=== PATIENT | female | born 1960 | race African-American/Black ===

== ENCOUNTER 2017-07-25 04:58 | Emergency (ER) | payer OTHER ==
[2017-07-25 05:36] VITALS: BP 149/92; PULSE 100; TEMP 98.3; BMI 25.0
[2017-07-25] MEDS ORDERED: KETOROLAC TROMETHAMINE 30 MG/1 ML VIAL IM ONE (05:39)
--- NOTE | 2017-07-25 05:40 | PDOC ---
History of Present Illness - General Chief Complaint: Pain Stated Complaint: PAIN RIGHT LEG Time Seen by Provider: 07/25/17 05:18 History Source: Patient - History of Present Illness Initial Comments: 07/25/17 06:05 57-year-old female with right knee pain and swelling on and off for the last 7 months reported to the ER for 1 day of worsening knee pain. Patient reports that she ran out of her medication that was given from the ER. Patient has not followed up with her primary care or orthopedic for this condition.patient reports tactile temps. Denies headache, nausea vomiting diarrhea, abdominal pain , injury, trauma to the knee. patient also reports that her previous ER visit she was diagnosed with hypertension and has ran out of medication. Past History - Past Medical History Allergies/Adverse Reactions: Allergies Allergy/AdvReac Type Severity Reaction Status Date / Time No Known Allergies Allergy Verified 07/25/17 05:37 Home Medications: Ambulatory Orders Ibuprofen [Motrin -] 600 mg PO TID #21 tablet 05/12/17 Methylprednisolone [Medrol Dose Benjamín] 4 mg PO ASDIR #21 tablet 05/12/17 Tramadol HCl 50 mg PO Q6H PRN #12 tablet MDD 4 tabs 05/12/17 Naproxen [Naprosyn -] 375 mg PO BID #20 tablet 07/25/17 COPD: No HTN: Yes - Suicide/Smoking/Psychosocial Hx Smoking History: Never smoked Hx Alcohol Use: No Drug/Substance Use Hx: No Review of Systems - Review of Systems Able to Perform ROS?: Yes Is the patient limited American proficient: No Constitutional: Yes: Fever Musculoskeletal: Yes: Joint Swelling (right knee), Other *Physical Exam - Vital Signs 07/25/17 06:08 Last Vital Signs Temp Pulse Resp BP Pulse Ox 98.3 F 100 H 20 149/92 98 07/25/17 05:22 07/25/17 05:22 07/25/17 05:22 07/25/17 05:22 07/25/17 05:22 - Physical Exam General Appearance: Yes: Moderate Distress Respiratory/Chest: positive: Lungs Clear, Normal Breath Sounds Cardiovascular: positive: Regular Rhythm, Regular Rate Musculoskeletal: positive: Decreased Range of Motion (to right knee, + swelling warm to touch. no erythema noted) Integumentary: positive: Normal Color, Dry, Warm Neurologic: positive: Fully Oriented, Alert, Normal Mood/Affect (all) Medical Decision Making - Medical Decision Making 07/25/17 06:09 A: right knee pain P: xray toradol *DC/Admit/Observation/Transfer Diagnosis at time of Disposition: Knee pain, right anterior - Discharge Dispostion Disposition: HOME Condition at time of disposition: Fair - Prescriptions Prescriptions: Naproxen [Naprosyn -] 375 mg PO BID #20 tablet - Referrals Referrals: Brandon Whitman [Primary Care Provider] - 24 hours Jerardo Del Cid MD [Staff Physician] - 24 hours - Patient Instructions Printed Discharge Instructions: DI for Knee Effusion Additional Instructions: please follow up with your doctor as soon as possible applt ice/ heat to the area. take naprosyn as prescribed follo w up with your doctor and an orthopedic doctor as soon as possible. - Post Discharge Activity Forms/Work/School Notes: Back to Work
[2017-07-25] MEDS ORDERED: KETOROLAC TROMETHAMINE 30 MG/1 ML VIAL ONE (06:37)
== END 2017-07-25 07:21 | disposition home or self-care (01) ==
LOC: JER 04:58
PROC: 3E0233Z Introduction of Anti-inflammatory into Muscle, Percutaneous Approach (ICD-10-PCS; principal; 2017-07-25)
DX: M25.561 Pain in right knee (principal); I10 Essential (primary) hypertension; Z76.0 Encounter for issue of repeat prescription
CPT/HCPCS: 73562-TC-RT-FY; 96372; 99281-25

== ENCOUNTER 2017-11-18 14:21 | Inpatient (IN) | payer OTHER ==
--- NOTE | 2017-11-18 14:35 | PDOC ---
History of Present Illness - General Chief Complaint: Palpitations Stated Complaint: CHEST PAIN, NAUSEA Time Seen by Provider: 11/18/17 14:34 - History of Present Illness Initial Comments: 11/18/17 14:40 Ms. Richard is a 57 yo female w/ pmh knee pain who presents for evaluation of episode of sweating with palpitations earlier today. Patient reports she was doing laundry when she suddenly became very sweaty and experienced palpitations and left sided chest pain. Symptoms persisted from 6am until 1pm. Patient reports they have now dissipated however niece who is with her convinced her to come for further evaluation. The patient denies shortness of breath, headache and dizziness. Denies fever, chills, nausea, vomit, diarrhea and constipation. Denies dysuria, frequency, urgency and hematuria. Allergies: NKDA Past History - Past Medical History Allergies/Adverse Reactions: Allergies Allergy/AdvReac Type Severity Reaction Status Date / Time No Known Allergies Allergy Verified 11/18/17 14:32 Home Medications: Ambulatory Orders NK [No Known Home Medication] 11/18/17 COPD: No HTN: Yes - Suicide/Smoking/Psychosocial Hx Smoking History: Never smoked Have you smoked in the past 12 months: No Hx Alcohol Use: No Drug/Substance Use Hx: No Review of Systems - Review of Systems Comments:: 11/18/17 14:41 GENERAL/CONSTITUTIONAL: No fever or chills. No weakness. HEAD, EYES, EARS, NOSE AND THROAT: No change in vision. No ear pain or discharge. No sore throat. CARDIOVASCULAR: +Chest pain w/ diaphoresis and palpitations as described. RESPIRATORY: No cough, wheezing, or hemoptysis. GASTROINTESTINAL: No nausea, vomiting, diarrhea or constipation. GENITOURINARY: No dysuria, frequency, or change in urination. MUSCULOSKELETAL: No joint or muscle swelling or pain. No neck or back pain. SKIN: No rash NEUROLOGIC: No headache, vertigo, loss of consciousness, or change in strength/ sensation. ENDOCRINE: No increased thirst. No abnormal weight change HEMATOLOGIC/LYMPHATIC: No anemia, easy bleeding, or history of blood clots. ALLERGIC/IMMUNOLOGIC: No hives or skin allergy. *Physical Exam - Vital Signs Last Vital Signs Temp Pulse Resp BP Pulse Ox 99.8 F H 92 H 18 155/92 99 11/18/17 14:28 11/18/17 14:28 11/18/17 14:28 11/18/17 14:28 11/18/17 14:28 - Physical Exam Comments: 11/18/17 14:41 GENERAL: Awake, alert, and fully oriented, in no acute distress HEAD: No signs of trauma, normocephalic, atraumatic EYES: PERRLA, EOMI, sclera anicteric, conjunctiva clear ENT: Auricles normal inspection, hearing grossly normal, nares patent, oropharynx clear without exudates. Moist mucosa NECK: Normal ROM, supple, no lymphadenopathy, JVD, or masses LUNGS: No distress, speaks full sentences, clear to auscultation bilaterally HEART: Regular rate and rhythm, normal S1 and S2, no murmurs, rubs or gallops, peripheral pulses normal and equal bilaterally. ABDOMEN: Soft, nontender, normoactive bowel sounds. No guarding, no rebound. No masses EXTREMITIES: Normal inspection, Normal range of motion, no edema. No clubbing or cyanosis. NEUROLOGICAL: Cranial nerves II through XII grossly intact. Normal speech, normal gait, no focal sensorimotor deficits SKIN: Warm, Dry, normal turgor, no rashes or lesions noted. Heart Score/ECG Review - History History: Highly suspicious - Electrocardiogram EKG: Non specific repolarization disturbance - Age Age: 45-65 - Risk Factors Based on the list above the patient has:: No risk factors known - Troponin Troponin: </= normal limit - Score Heart Score - Total: 4 ED Treatment Course - LABORATORY CBC & Chemistry Diagram: 11/18/17 15:30 11/18/17 15:30 Medical Decision Making - Medical Decision Making 11/18/17 16:17 Ms. Richard is a 57 yo female w/ pmh as described who presents for evaluation of episode concerning for cardiac event. Workup begun with EKG, labs, CXR. Labs grossly wnl as below. EKG significant for nonspecific t-wave abnormalities in V4 -V6 w/ incomplete LBBB. HEART score 4. Will admit patient for further cardiac workup. Laboratory Results - last 24 hr 11/18/17 11/18/17 11/18/17 15:30 15:30 15:45 WBC 8.0 RBC 4.11 Hgb 11.1 Hct 33.8 MCV 82.1 MCH 26.9 MCHC 32.8 RDW 17.7 H Plt Count 416 MPV 8.6 Absolute Neuts (auto) 5.0 Neutrophils % 61.8 Lymphocytes % 27.4 Monocytes % 9.0 Eosinophils % 1.0 Basophils % 0.8 Nucleated RBC % 0 Sodium 138 Potassium 4.2 Chloride 104 Carbon Dioxide 26 Anion Gap 8 BUN 13 Creatinine 0.7 Creat Clearance w eGFR > 60 Random Glucose 109 H Calcium 9.0 Total Bilirubin 0.3 AST 19 ALT 23 Alkaline Phosphatase 85 Creatine Kinase 136 Troponin I < 0.02 Total Protein 8.7 H Albumin 3.6 Urine Color Straw Urine Appearance Clear Urine pH 6.0 Ur Specific Kirksey 1.006 Urine Protein Negative Urine Glucose (UA) Negative Urine Ketones Negative Urine Blood 1+ H Urine Nitrite Negative Urine Bilirubin Negative Urine Urobilinogen Negative Ur Leukocyte Esterase Negative *DC/Admit/Observation/Transfer Diagnosis at time of Disposition: Palpitations Chest pain Qualifiers: Chest pain type: unspecified Qualified Code(s): R07.9 - Chest pain, unspecified - Discharge Dispostion Decision to Admit order: Yes - Referrals Referrals: Antonio Whitman MD [Primary Care Provider] - - Patient Instructions - Post Discharge Activity
[2017-11-18] MEDS ORDERED: ASPIRIN 81 MG CHEWABLE TABLETS PO ONE (15:20)
[2017-11-18] MEDS ORDERED: ASPIRIN 81 MG CHEWABLE TABLETS ONE (15:31)
--- NOTE | 2017-11-18 15:34 | PDOC ---
Attending Attestation - Resident Resident Name: Yousif Michaels - ED Attending Attestation I have performed the following: I have examined & evaluated the patient, The case was reviewed & discussed with the resident, I agree w/resident's findings & plan, Exceptions are as noted - HPI HPI: 11/18/17 15:31 57 year old female with no past medical history presents with chest pain and palpitations. The patient woke up in her usual state of health doing laundry at 6 am. Stated that she developed chest discomfort, diaphoresis, palpitations. No associated SOB. Symptoms lasted until 1 pm, until symptoms resolved. Has had a prior cardiac workup in 2015, but does not remember results. Does not smoke cigarettes and no family history of cardiac diesase. No recent illnesses, fevers, chills, cough, vomiting, diarrhea. - Physicial Exam PE: 11/18/17 15:34 GENERAL: Awake, alert, and fully oriented, in no acute distress HEAD: No signs of trauma EYES: EOMI, sclera anicteric, conjunctiva clear ENT: Auricles normal inspection, hearing grossly normal, nares patent, Moist mucosa NECK: Normal ROM, supple LUNGS: Breath sounds equal, clear to auscultation bilaterally. No wheezes, and no crackles HEART: Regular rate and rhythm, normal S1 and S2, no murmurs, rubs or gallops EXTREMITIES: Normal range of motion, no edema. No clubbing or cyanosis. No cords, erythema, or tenderness NEUROLOGICAL: Cranial nerves II through XII grossly intact. Normal speech, normal gait SKIN: Warm, Dry, normal turgor, no rashes or lesions noted. - Medical Decision Making 11/18/17 15:34 Vital Signs Temp Pulse Resp BP Pulse Ox 99.8 F H 92 H 18 155/92 99 11/18/17 14:28 11/18/17 14:28 11/18/17 14:28 11/18/17 14:28 11/18/17 14:28 Findings concerning for ACS/MT. Labs including troponin, chest xray. Give aspirin. If trop negative, heart score is 4. Admit. Temp noted to be 99.8 degrees. Will trend temperature. Heart Score/ECG Review - History History: Highly suspicious - Electrocardiogram EKG: Non specific repolarization disturbance - Age Age: 45-65 - Risk Factors Based on the list above the patient has:: No risk factors known - Troponin Troponin: </= normal limit - Score Heart Score - Total: 4 #1 ECG reviewed & interpreted by me at: 14:40 11/18/17 15:32 NSR 89, TWI III, avF, V4-V6, no std/justina, RSR' V2, QTC 420 msec, +LVH
[2017-11-18 15:47] LABS: BASO % 0.8 % (0-2.0); HEMATOCRIT 33.8 % (32.4-45.2); HEMOGLOBIN 11.1 GM/dL (10.7-15.3); LYMPH % 27.4 % (8-40); MCH 26.9 pg (25.7-33.7); MCHC 32.8 g/dl (32.0-36.0); MEAN CELL VOLUME 82.1 fl (80-96); MEAN PLT VOLUME 8.6 fl (7.5-11.1); NEUT % 61.8 % (42.8-82.8); PLATELET COUNT 416 K/MM3 (134-434); RBC 4.11 M/mm3 (3.60-5.2); RDW 17.7 % (11.6-15.6)
[2017-11-18 16:00] LABS: ALBUMIN 3.6 g/dl (3.4-5.0); ANION GAP 8 MMOL/L (8-16); BILIRUBIN,TOTAL 0.3 mg/dL (0.2-1.0); BLOOD UREA NITROGEN 13 mg/dL (7-18); CHLORIDE 104 mmol/L (98-107); CO2 26 mmol/L (21-32); CREATININE 0.7 mg/dL (0.55-1.3); GLUCOSE,RANDOM 109 mg/dL (74-106); POTASSIUM 4.2 mmol/L (3.5-5.1); SGOT/AST 19 U/L (15-37); SGPT/ALT 23 U/L (13-61); SODIUM 138 mmol/L (136-145); TOT PROT 8.7 g/dl (6.4-8.2)
[2017-11-18 16:03] LABS: ALK PHOS 85 U/L (45-117)
[2017-11-18 16:10] LABS: URINE APPEARANCE CLEAR; URINE BILIRUBIN NEGATIVE (<2.0 mg/dL); URINE COLOR STRAW; URINE GLUCOSE (UA) NEGATIVE (NEGATIVE); URINE KETONE NEGATIVE (NEGATIVE); URINE LEUK ESTERASE NEGATIVE (NEGATIVE); URINE NITRITE NEGATIVE (NEGATIVE); URINE PROTEIN NEGATIVE (NEGATIVE); URINE UROBILINOGEN NEGATIVE mg/dL (0.2-1.0)
[2017-11-18 16:25] LABS: URINE MUCUS RARE
[2017-11-18 18:47] VITALS: BMI 27.9
[2017-11-19 07:39] LABS: BASO % 0.9 % (0-2.0); EOS % 1.4 % (0-4.5); HEMATOCRIT 32.9 % (32.4-45.2); HEMOGLOBIN 10.9 GM/dL (10.7-15.3); LYMPH % 28.2 % (8-40); MCH 27.1 pg (25.7-33.7); MCHC 33.2 g/dl (32.0-36.0); MEAN CELL VOLUME 81.6 fl (80-96); MEAN PLT VOLUME 8.9 fl (7.5-11.1); MONO % 8.2 % (3.8-10.2); NEUT % 61.3 % (42.8-82.8); PLATELET COUNT 379 K/MM3 (134-434); RBC 4.03 M/mm3 (3.60-5.2); RDW 17.4 % (11.6-15.6); WHITE BLOOD COUNT 7.1 K/mm3 (4.0-10.0)
[2017-11-19 08:30] LABS: ALBUMIN 3.5 g/dl (3.4-5.0); BLOOD UREA NITROGEN 12 mg/dL (7-18); CALCIUM 9.2 mg/dL (8.5-10.1); GLUCOSE,RANDOM 94 mg/dL (74-106)
--- NOTE | 2017-11-19 08:46 | CON.CARD ---
Consult Consult Specialty:: Cardiology for dr. Trevizo Reason for Consultation:: palpitations - History of Present Illness History of Present Illness: 57 year old female with no past medical history presents with chest pain and palpitations. The patient woke up in her usual state of health doing laundry at 6 am. Stated that she developed chest discomfort, diaphoresis, palpitations. No associated SOB. Symptoms lasted until 1 pm, until symptoms resolved. Has had a prior cardiac workup in 2015, but does not remember results. Does not smoke cigarettes and no family history of cardiac diesase. No recent illnesses, fevers, chills, cough, vomiting, diarrhea. - History Source History Provided By: Patient, Medical Record - Past Medical History Cardio/Vascular: No: AFIB, Aneurysm, Aortic Insufficiency, Aortic Stenosis, CAD , CHF, Deep Vein Thrombosis, HTN, Hyperlipdemia, [place], Mitral Insufficiency, Mitral Stenosis, Murmur, Pulmonary Hypertension, Other Pulmonary: No: Asthma, Bronchitis, Cancer, COPD, O2 Dependent, Pneumonia, Previously Intubated, Pulmonary Embolus, Pulmonary Fibrosis, Sleep Apnea, Other Gastrointestinal: No: Ascites, Cancer, Constipation, Crohn's Disease, Diverticulitis, Diverticulosis, Esophageal Varices, Gastritis, GERD, GI Bleed, Hemorrhoids, Hiatal Hernia, Inflamatory Bowel Disease, Irritable Bowel Disease, Pancreatitis, Peptic Ulcer Disease, Ulcerative Colitis, Other ...: No - Alcohol/Substance Use Hx Alcohol Use: No - Smoking History Smoking history: Never smoked Have you smoked in the past 12 months: No Home Medications - Allergies Allergies/Adverse Reactions: Allergies Allergy/AdvReac Type Severity Reaction Status Date / Time No Known Allergies Allergy Verified 11/18/17 14:32 - Home Medications Home Medications: Ambulatory Orders NK [No Known Home Medication] 11/18/17 Review of Systems - Review of Systems Constitutional: reports: No Symptoms Eyes: reports: No Symptoms HENT: reports: No Symptoms Neck: reports: No Symptoms Cardiovascular: reports: Chest Pain, Palpitations Respiratory: reports: No Symptoms Gastrointestinal: reports: No Symptoms Genitourinary: reports: No Symptoms Breasts: reports: No Symptoms Reported Musculoskeletal: reports: No Symptoms Integumentary: reports: No Symptoms Neurological: reports: No Symptoms Endocrine: reports: No Symptoms Hematology/Lymphatic: reports: No Symptoms Psychiatric: reports: No Symptoms Vital Signs: Vital Signs Temperature 99.0 F 11/19/17 05:42 Pulse Rate 97 H 11/19/17 05:42 Respiratory Rate 18 11/19/17 05:42 Blood Pressure 115/95 11/19/17 05:42 O2 Sat by Pulse Oximetry (%) 98 11/18/17 20:27 Constitutional: Yes: Well Nourished, No Distress, Calm Eyes: Yes: WNL, Conjunctiva Clear, EOM Intact HENT: Yes: WNL, Atraumatic, Normocephalic Neck: Yes: WNL, Supple, Trachea Midline Respiratory: Yes: WNL, Regular, CTA Bilaterally Gastrointestinal: Yes: WNL, Normal Bowel Sounds Renal/: Yes: WNL Cardiovascular: Yes: WNL, Regular Rate and Rhythm Heart Sounds: Yes: S1, S2 Musculoskeletal: Yes: WNL Extremities: Yes: WNL Integumentary: Yes: WNL Neurological: Yes: WNL, Alert, Oriented ...Motor Strength: WNL Psychiatric: Yes: WNL, Alert, Oriented - Other Data Labs, Other Data: CBC, BMP 11/19/17 06:32 Troponin, BNP 11/18/17 15:30 Troponin I < 0.02 Troponin, BNP 11/18/17 15:30 Troponin I < 0.02 Laboratory Tests 11/18/17 11/18/17 11/18/17 15:30 15:30 15:45 WBC 8.0 RBC 4.11 Hgb 11.1 Hct 33.8 MCV 82.1 MCH 26.9 MCHC 32.8 RDW 17.7 H Plt Count 416 MPV 8.6 Absolute Neuts (auto) 5.0 Neutrophils % 61.8 Lymphocytes % 27.4 Monocytes % 9.0 Eosinophils % 1.0 Basophils % 0.8 Nucleated RBC % 0 Sodium 138 Potassium 4.2 Chloride 104 Carbon Dioxide 26 Anion Gap 8 BUN 13 Creatinine 0.7 Creat Clearance w eGFR > 60 Random Glucose 109 H Calcium 9.0 Total Bilirubin 0.3 AST 19 ALT 23 Alkaline Phosphatase 85 Creatine Kinase 136 Troponin I < 0.02 Total Protein 8.7 H Albumin 3.6 Urine Color Straw Urine Appearance Clear Urine pH 6.0 Ur Specific Chancellor 1.006 Urine Protein Negative Urine Glucose (UA) Negative Urine Ketones Negative Urine Blood 1+ H Urine Nitrite Negative Urine Bilirubin Negative Urine Urobilinogen Negative Ur Leukocyte Esterase Negative Urine WBC (Auto) None Urine RBC (Auto) 1 Urine Mucus Rare 11/19/17 06:32 WBC 7.1 RBC 4.03 Hgb 10.9 Hct 32.9 MCV 81.6 MCH 27.1 MCHC 33.2 RDW 17.4 H Plt Count 379 MPV 8.9 Absolute Neuts (auto) 4.3 Neutrophils % 61.3 Lymphocytes % 28.2 Monocytes % 8.2 Eosinophils % 1.4 Basophils % 0.9 Nucleated RBC % 0 Sodium Potassium Chloride Carbon Dioxide Anion Gap BUN Creatinine Creat Clearance w eGFR Random Glucose Calcium Total Bilirubin AST ALT Alkaline Phosphatase Creatine Kinase Troponin I Total Protein Albumin Urine Color Urine Appearance Urine pH Ur Specific Chancellor Urine Protein Urine Glucose (UA) Urine Ketones Urine Blood Urine Nitrite Urine Bilirubin Urine Urobilinogen Ur Leukocyte Esterase Urine WBC (Auto) Urine RBC (Auto) Urine Mucus Imaging - Results Chest X-ray: Image Reviewed (cm no i/e) EKG: Image Reviewed (sr ?lvh rep abn) Problem List - Problems (1) Chest pain Code(s): R07.9 - CHEST PAIN, UNSPECIFIED Qualifiers: Chest pain type: unspecified Qualified Code(s): R07.9 - Chest pain, unspecified (2) Palpitations Code(s): R00.2 - PALPITATIONS (3) Knee pain, right anterior Code(s): M25.561 - PAIN IN RIGHT KNEE Assessment/Plan Imp; Palpitations Atypical CP abnormal EKG r/o mi neg ? cardiomegaly on CXR Plan; 24Holter Telemetry TFT,s echo lipids will need a stress test prior to d/c coverage for dr. Trevizo
[2017-11-19 08:57] LABS: ALK PHOS 87 U/L (45-117); ANION GAP 9 MMOL/L (8-16); BILIRUBIN,TOTAL 0.6 mg/dL (0.2-1.0); CHLORIDE 104 mmol/L (98-107); CO2 26 mmol/L (21-32); CREATININE 0.7 mg/dL (0.55-1.3); POTASSIUM 4.5 mmol/L (3.5-5.1); SGOT/AST 17 U/L (15-37); SGPT/ALT 22 U/L (13-61); SODIUM 139 mmol/L (136-145); TOT PROT 8.5 g/dl (6.4-8.2)
[2017-11-19] MEDS: HEPARIN NA (PORCINE) 5,000 UNITS/ML 1ML VIAL SQ SCH ×2 (09:33→21:10)
[2017-11-19] MEDS: ASPIRIN COATED 81 MG TABLET.EC PO SCH (09:33)
[2017-11-19 09:50] LABS: CHOLESTEROL 143 mg/dL (50-200); TRIGLYCERIDES 92 mg/dL (0-150)
[2017-11-19 09:51] LABS: HDL CHOLESTEROL 43 mg/dL (40-60)
--- NOTE | 2017-11-19 16:04 | PN ---
Progress Note, Physician - Current Medication List Current Medications: Active Medications Aspirin (Ecotrin -) 81 mg PO DAILY [facility] Last Admin: 11/19/17 09:33 Dose: 81 mg Heparin Sodium (Porcine) (Heparin -) 5,000 unit SQ BID [facility] Last Admin: 11/19/17 09:33 Dose: 5,000 unit - Objective Vital Signs: Vital Signs Temperature 99.1 F 11/19/17 13:58 Pulse Rate 105 H 11/19/17 13:58 Respiratory Rate 18 11/19/17 10:00 Blood Pressure 155/81 11/19/17 13:58 O2 Sat by Pulse Oximetry (%) 99 11/19/17 09:00 Labs: CBC, BMP 11/19/17 06:32 11/19/17 06:32
--- NOTE | 2017-11-19 16:05 | HP ---
Admitting History and Physical - Past Medical History Cardiovascular: No: AFIB, Aneurysm, Aortic Insufficiency, Aortic Stenosis, CAD, CHF, Deep Vein Thrombosis, HTN, Hyperlipdemia, [place], Mitral Insufficiency, Mitral Stenosis, Murmur, Pulmonary Hypertension, Other Pulmonary: No: Asthma, Bronchitis, Cancer, COPD, O2 Dependent, Pneumonia, Previously Intubated, Pulmonary Embolus, Pulmonary Fibrosis, Sleep Apnea, Other Gastrointestinal: No: Ascites, Cancer, Constipation, Crohn's Disease, Diverticulitis, Diverticulosis, Esophageal Varices, Gastritis, GERD, GI Bleed, Hemorrhoids, Hiatal Hernia, Inflamatory Bowel Disease, Irritable Bowel Disease, Pancreatitis, Peptic Ulcer Disease, Ulcerative Colitis, Other ...: No - Smoking History Smoking history: Never smoked Have you smoked in the past 12 months: No - Alcohol/Substance Use Hx Alcohol Use: No Home Medications - Allergies Allergies/Adverse Reactions: Allergies Allergy/AdvReac Type Severity Reaction Status Date / Time No Known Allergies Allergy Verified 11/18/17 14:32 - Home Medications Home Medications: Ambulatory Orders NK [No Known Home Medication] 11/18/17 Physical Examination Vital Signs: Vital Signs Temperature 99.1 F 11/19/17 13:58 Pulse Rate 105 H 11/19/17 13:58 Respiratory Rate 18 11/19/17 10:00 Blood Pressure 155/81 11/19/17 13:58 O2 Sat by Pulse Oximetry (%) 99 11/19/17 09:00 Labs: CBC, BMP 11/19/17 06:32 11/19/17 06:32
--- NOTE | 2017-11-19 21:35 | EKG ---
Test Reason : Blood Pressure : / mmHG Vent. Rate : 089 BPM Atrial Rate : 089 BPM P-R Int : 148 ms QRS Dur : 086 ms QT Int : 346 ms P-R-T Axes : 049 013 -27 degrees QTc Int : 420 ms NORMAL SINUS RHYTHM MINIMAL VOLTAGE CRITERIA FOR LVH, MAY BE NORMAL VARIANT T WAVE ABNORMALITY, CONSIDER LATERAL ISCHEMIA ABNORMAL ECG NO PREVIOUS ECGS AVAILABLE Confirmed by PRIMO CONNORS MD ([id number]) on 11/19/2017 9:35:14 PM Referred By: Confirmed By:PRIMO CONNORS MD
[2017-11-20 06:55] LABS: CHOLESTEROL 150 mg/dL (50-200); TRIGLYCERIDES 76 mg/dL (0-150)
[2017-11-20 06:57] LABS: HDL CHOLESTEROL 49 mg/dL (40-60)
--- NOTE | 2017-11-20 09:05 | PN ---
Progress Note, Physician Chief Complaint: Seen and examined for 1st time today Hx confirmed on phone w/ her sister translating Patient primarily came for palpitations and "low blood sugar" sx. She denies chest pain or SOB- however, ECG does show TWI V4-V6 and NSST ST changes II, III, avF. Cardiac enzymes negative - Current Medication List Current Medications: Active Medications Aspirin (Ecotrin -) 81 mg PO DAILY [facility] Last Admin: 11/19/17 09:33 Dose: 81 mg Heparin Sodium (Porcine) (Heparin -) 5,000 unit SQ BID [facility] Last Admin: 11/19/17 21:10 Dose: 5,000 unit - Objective Vital Signs: Vital Signs Temperature 98.8 F 11/20/17 06:00 Pulse Rate 90 11/20/17 06:00 Respiratory Rate 20 11/20/17 06:00 Blood Pressure 131/76 11/20/17 06:00 O2 Sat by Pulse Oximetry (%) 98 11/19/17 21:00 Constitutional: Yes: No Distress Cardiovascular: Yes: Regular Rate and Rhythm Respiratory: Yes: CTA Bilaterally Gastrointestinal: Yes: Soft Edema: No Neurological: Yes: Alert, Oriented Labs: CBC, BMP 11/19/17 06:32 11/19/17 06:32 Laboratory Tests 11/18/17 11/19/17 11/20/17 15:30 06:32 05:30 Troponin I < 0.02 < 0.02 < 0.02 - ....Imaging EKG: Image Reviewed (TELE: Sinus.) Assessment/Plan IMP: History of chronic mild HTN Palpitations, w/ atypical CP Abnl ECG REC: Echo today for EF assessment. Telemetry thus far negative, would continue until cardiac w/u completed. Plan for Lexiscan MIBI prior discharge.
[2017-11-20] MEDS: ASPIRIN COATED 81 MG TABLET.EC PO SCH (09:09)
[2017-11-20] MEDS: HEPARIN NA (PORCINE) 5,000 UNITS/ML 1ML VIAL SQ SCH ×2 (09:09→22:06)
--- NOTE | 2017-11-20 13:30 | ECHO ---
Name: ALBERTA REDMAN Exam:Adult Echocardiogram Study Date: 11/20/2017 11:13 AM Age: 57 yrs Reason For Study: Chest pain Height: 66 in Weight: 173 lb BSA: 1.9 m2 MMode/2D Measurements & Calculations IVSd: 0.87 cm Ao root diam: 3.0 cm LVIDd: 4.8 cm LA dimension: 2.9 cm LVIDs: 4.0 cm LVPWd: 0.79 cm EDV(Teich): 107.3 ml ESV(Teich): 71.8 ml Doppler Measurements & Calculations MV E max camilo: 67.4 cm/sec TR max camilo: 171.9 cm/sec MV A max camilo: 90.2 cm/sec TR max P.8 mmHg MV E/A: 0.75 MV dec time: 0.15 sec Med Peak E' Camilo: 3.8 cm/sec PI Vmax: 165.6 cm/sec Med E/e': 17.7 Lat Peak E' Camilo: 3.7 cm/sec Lat E/e': 18.2 Procedure The study was technically adequate with some images being suboptimal in quality. Left Ventricle The left ventricle is normal in size. Left ventricular systolic function is mildly reduced. Ejection Fraction = 45-50%. Grade I diastolic dysfunction, (abnormal relaxation pattern). Regional wall motion abnormal ities cannot be excluded due to limited visualization. Right Ventricle The right ventricle is normal in size and function. Atria Normal left and right atrial size and function. Mitral Valve The mitral valve is grossly normal. There is trace mitral regurgitation. Tricuspid Valve The tricuspid valve is not well visualized. There is trace tricuspid regurgitation. There was insuffi cient TR detected to calculate RV systolic pressure. Aortic Valve The aortic valve is normal in structure and function. The aortic valve opens well. The aortic valve i s trileaflet. No aortic regurgitation is present. Pulmonic Valve The pulmonic valve is not well visualized. Trace pulmonic valvular regurgitation. Great Vessels The aortic root is normal size. Pericardium/Pleura There is no pericardial effusion. Interpretation Summary There is no comparison study available. There is trace tricuspid regurgitation. Trace pulmonic valvular regurgitation. The right ventricle is normal in size and function. Left ventricular systolic function is mildly reduced. Ejection Fraction = 45-50%. There is trace mitral regurgitation. Grade I diastolic dysfunction, (abnormal relaxation pattern). Reid Roa MD 11/20/2017 01:30 PM
--- NOTE | 2017-11-20 15:16 | HOL ---
Hook-up date: 2017-11-19 11:23:00 Duration: 24:00:00 Test Indications: PALPITATIONS Medications: [id number] QRS complexes 18 Ventricular ectopics which represent <1 % of total QRS comp. 13 Supraventricular ectopics which represent <1 % of total QRS comp. * Paced QRS complexs which represent % of total QRS comp. * % of Time Classified as Noise VENTRICULAR ECTOPY 18 Isolated 0 Bigeminal Cycles 0 Couplets 0 Runs 0 Beats in Runs * Beats LONGEST at * BPM at :: -- * Beats FASTEST at * BPM at :: -- SUPRAVENTRICULAR ECTOPY 8 Isolated 0 Couplets 1 Runs 5 Beats in Runs 5 Beats LONGEST at 136 BPM at 00:07:32 2017-11-20 5 Beats FASTEST at 136 BPM at 00:07:32 2017-11-20 HEART RATES 65 MIN at 00:14:06 2017-11-20 91 AVG 121 MAX at 08:17:20 2017-11-20 LONGEST RR 0.728 secs at 10:37:31 2017-11-20 SCANNED BY BRADEN OLIVEROS ON 11/20/17 1. BASELINE RHYTHM IS SINUS WITH AVERAGE HR OF 91 BPM. RATES VARIED FROM 65 TO 121 BPM. 2. RARE ATRIAL ECTOPIES. ONE 5 BEATS OF NSSVT LIKELY ATRIAL TACHYCARDIA 3. RARE VENTRICULAR ECTOPIES 4. NO SIGNIFICANT ST-T ABNORMALITIES 5. DIARY WAS SUBMITTED Confirmed by NIDHI HORNE, ALMAZ ([id number]) on 11/20/2017 3:16:25 PM Referred By[facility] Overread By: ALMAZ TERRELL MD
--- NOTE | 2017-11-20 22:51 | PN ---
Progress Note, Physician - Current Medication List Current Medications: Active Medications Aspirin (Ecotrin -) 81 mg PO DAILY [facility] TO [facility] Last Admin: 11/20/17 09:09 Dose: 81 mg Heparin Sodium (Porcine) (Heparin -) 5,000 unit SQ BID [facility] Last Admin: 11/20/17 22:06 Dose: 5,000 unit - Objective Vital Signs: Vital Signs Temperature 98.2 F 11/20/17 22:05 Pulse Rate 90 11/20/17 22:05 Respiratory Rate 16 11/20/17 22:05 Blood Pressure 153/89 11/20/17 22:05 O2 Sat by Pulse Oximetry (%) 99 11/20/17 20:43 Labs: CBC, BMP 11/19/17 06:32 11/19/17 06:32
--- NOTE | 2017-11-21 08:57 | PN ---
Progress Note, Physician Chief Complaint: Echo with EF 45-50%, mildly reduced TELE: burst PSVT, self limited. Holter with NSVT short run - Current Medication List Current Medications: Active Medications Aspirin (Ecotrin -) 81 mg PO DAILY [facility] Last Admin: 11/20/17 09:09 Dose: 81 mg Heparin Sodium (Porcine) (Heparin -) 5,000 unit SQ BID [facility] Last Admin: 11/20/17 22:06 Dose: 5,000 unit - Objective Vital Signs: Vital Signs Temperature 99.4 F 11/21/17 08:17 Pulse Rate 92 H 11/21/17 08:17 Respiratory Rate 16 11/21/17 08:19 Blood Pressure 137/91 11/21/17 08:17 O2 Sat by Pulse Oximetry (%) 100 11/21/17 08:19 Constitutional: Yes: Calm Cardiovascular: Yes: Regular Rate and Rhythm Respiratory: Yes: CTA Bilaterally Gastrointestinal: Yes: Soft Edema: No Neurological: Yes: Alert ...Motor Strength: WNL Labs: CBC, BMP 11/19/17 06:32 11/19/17 06:32 Laboratory Tests 11/20/17 05:30 Creatine Kinase 91 Troponin I < 0.02 - ....Imaging EKG: Image Reviewed Assessment/Plan IMP: History of chronic mild HTN Palpitations, w/ atypical CP, PSVT on telemetry Abnl ECG, mildly reduced LV systolic function REC: 1. Add Toprol 25mg daily; plan to add low dose ERIK or ARB as outpt. 2. Stress MPI to r/o underlying ischemia. Further reccs pending above.
[2017-11-21] MEDS ORDERED: metoPROLOL SUCCINATE 25 MG TAB.SR.24H (FP) PO SCH (10:00)
[2017-11-21] MEDS ORDERED: REGADENOSON 0.4 MG/5 ML PRE-FILLED SYRINGE IVPUSH ONE ×2 (10:45→10:58)
[2017-11-21] MEDS ORDERED: AMINOPHYLLINE 250 MG/10 ML VIAL IVPUSH ONE (11:45)
[2017-11-21] MEDS: ASPIRIN COATED 81 MG TABLET.EC PO SCH (12:07)
[2017-11-21] MEDS: HEPARIN NA (PORCINE) 5,000 UNITS/ML 1ML VIAL SQ SCH (12:08)
[2017-11-21 19:41] VITALS: BP 142/71; PULSE 94; TEMP 98.8
== END 2017-11-21 18:27 | disposition home or self-care (01) | DRG 201 ==
LOC: JER 14:21 → JERBED 16:19 → J4W 18:57 → OBSVTOIN 11-19 03:12
PROVIDERS: ADMIT Internal Medicine; ATTEND Internal Medicine
DX: I47.1 Supraventricular tachycardia (principal); R07.89 Other chest pain; R00.2 Palpitations; M25.561 Pain in right knee; I10 Essential (primary) hypertension; I44.7 Left bundle-branch block, unspecified; R94.31 Abnormal electrocardiogram [ECG] [EKG]
CPT/HCPCS: 36415; 71046-TC-FY; 78452-TC; 80053; 80061; 81003; 81015; 82550; 83721; 84436; 84439; 84443; 84484; 85025; 87086; 93005; 93010; 93017; 93225; 93226; 93306-TC; 99285-25; A9502; G0378; J1644; J2785